=== PATIENT | male | born 1975 | race Caucasian/White ===

== ENCOUNTER 2017-07-10 09:14 | Emergency (ER) | payer BC, MEDICARE ==
[~2017-07-10] VITALS: Ht 193 cm; Wt 100.0 kg
[2017-07-10] MEDS ORDERED: TOPR50TA PO (09:27)
[2017-07-10] MEDS ORDERED: CLIN150C14 PO (09:27)
[2017-07-10] MEDS ORDERED: XANA1TAB2 PO (09:27)
[2017-07-10] MEDS ORDERED: LOSA100T36 PO (09:27)
[2017-07-10] MEDS ORDERED: HUMA100I5 SC (09:27)
[2017-07-10 10:13] LABS: BASO % 0.8 % (0.0-1.0); EOS # 0.2 K/mm3 (0.0-0.50); EOS % 4.1 % (0.0-3.0); LARGE UNSTAINED CELL # 0.1 K/mm3 (0.0-0.4); LARGE UNSTAINED CELL % 1.1 % (0.0-4.0); LYMPH % 34.9 % (24.0-44.0); MEAN CORPUSCULAR HEMOGLOBIN 32.6 pg (27.0-33.0); MEAN CORPUSCULAR HGB CONC 35.7 g/dl (32.0-36.5); MEAN CORPUSCULAR VOLUME 91.2 fl (80.0-96.0); MONO # 0.3 K/mm3 (0.0-0.8); MONO % 4.9 % (0.0-5.0); NEUTROPHILS % 54.3 % (36.0-66.0); PLATELET COUNT, AUTOMATED 224 k/mm3 (150-450); RED CELL DISTRIBUTION WIDTH 13.6 % (11.5-14.5); WHITE BLOOD COUNT 5.5 K/mm3 (4.0-10.0)
[2017-07-10] MEDS ORDERED: KETOROLAC 30 MG/ML VIAL (J1885) IV ONE (10:15)
[2017-07-10 10:34] LABS: ANION GAP 8 MEQ/L (8-16); BLOOD UREA NITROGEN 12 MG/DL (7-18); CALCIUM LEVEL 9.4 MG/DL (8.5-10.1); CARBON DIOXIDE LEVEL 29 MEQ/L (21-32); CHLORIDE LEVEL 100 MEQ/L (98-107); CREATININE FOR GFR 0.77 MG/DL (0.70-1.30); GLOMERULAR FILTRATION RATE > 60.0 (>60); GLUCOSE, FASTING 247 MG/DL (70-105); POTASSIUM SERUM 4.4 MEQ/L (3.5-5.1); SODIUM LEVEL 137 MEQ/L (136-145)
[2017-07-10 10:50] LABS: ERYTHROCYTE SEDIMENTATION RATE 10 mm/hr (0-15)
--- NOTE | 2017-07-10 11:27 | REP ---
RIGHT FOOT SERIES: Four views of the right foot are performed. There is a probable old nondisplaced fracture of the 5th proximal phalanx. There appears to be an avulsion fracture at the base of the 2nd proximal phalanx. This may be old. I see no other evidence of acute fracture or dislocation. 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 There are areas of narrowing and subchondral sclerosis at the tarsal/metatarsal joints medially. Mild vascular calcifications are seen in the soft tissues. IMPRESSION: Probable old nondisplaced fracture 5th proximal phalanx. Avulsion fracture base of 2nd proximal phalanx may be old. No other acute abnormalities visualized. Signed by Yo Gonzalez MD 07/10/2017 04:41 P
[2017-07-10 11:53] VITALS: BP 160/90
== END 2017-07-10 12:02 | disposition home or self-care (01) ==
LOC: M ED 09:14
DX: L03.031 Cellulitis of right toe (principal); E11.65 Type 2 diabetes mellitus with hyperglycemia; Z98.84 Bariatric surgery status
CPT/HCPCS: 36415; 73630; 80048; 85025; 85652; 86140; 96374; 99283; J1885